=== PATIENT | female | born 1945 | race Two or more races ===

== ENCOUNTER 2024-02-05 17:29 | Emergency (ER) | payer OTHER ==
[2024-02-05 17:46] VITALS: BP 126/54; PULSE 61; RESP 16; BMI 18.3
[2024-02-05 18:08] VITALS: TEMP 98.2
[2024-02-05] MEDS ORDERED: ACETAMINOPHEN 325 MG TABLET (FP) ONE (18:29)
[2024-02-05] MEDS: ACETAMINOPHEN 325 MG TABLET (FP) PO ONE (18:33)
== END 2024-02-05 19:26 | disposition home or self-care (01) ==
LOC: JER 17:29
DX: S80.212A Abrasion, left knee, initial encounter (principal); W10.1XXA Fall (on)(from) sidewalk curb, initial encounter
CPT/HCPCS: 72170-TC-FY; 73560-TC-LT-FY; 99284-25

== ENCOUNTER 2024-06-04 14:32 | Inpatient (IN) | payer OTHER ==
[2024-06-04 16:16] LABS: VENOUS BASE EXCESS -0.2 mmol/L (-2-2); VENOUS O2 SATURATION 23.2 % (70-80); VENOUS PCO2 46.1 mmHg (38-52); VENOUS PH 7.362 (7.310-7.410)
[2024-06-04 16:19] LABS: INR 1.29 (0.83-1.09); PROTHROMBIN TIME (PATIENT) 14.5 SEC (9.7-13.0)
[2024-06-04 16:21] LABS: ACTIVATED PTT 32.4 SECONDS (25.2-36.5)
[2024-06-04 16:27] LABS: HEMATOCRIT 39.1 % (32.4-45.2); HEMOGLOBIN 12.9 GM/dL (10.7-15.3); MCH 29.1 pg (25.7-33.7); MCHC 33.1 g/dl (32.0-36.0); MEAN CELL VOLUME 88.1 fl (80-96); MEAN PLT VOLUME 9.4 fl (7.5-11.1); PLATELET COUNT 104 10^3/uL (134-434); RBC 4.43 M/mm3 (3.60-5.2); RDW 13.6 % (11.6-15.6)
[2024-06-04 16:37] LABS: POTASSIUM 3.9 mmol/L (3.5-5.1)
[2024-06-04 16:39] LABS: ALBUMIN 3.8 g/dl (3.4-5.0); CALCIUM 9.7 mg/dL (8.5-10.1)
[2024-06-04 16:40] LABS: BLOOD UREA NITROGEN 14.6 mg/dL (7-18); MAGNESIUM 1.9 mg/dL (1.8-2.4)
[2024-06-04 16:43] LABS: CREATININE 1.4 mg/dL (0.55-1.3)
[2024-06-04 16:44] LABS: BILIRUBIN,TOTAL 2.3 mg/dL (0.2-1); TOT PROT 8.2 g/dl (6.4-8.2)
[2024-06-04 16:48] LABS: N-TERMINAL BNP 1408.9 pg/ml (5-450)
[2024-06-04 16:51] LABS: LACTIC ACID 3.4 mmol/L (0.4-2.0)
[2024-06-04] MEDS ORDERED: ACETAMINOPHEN INJECTION 100 ML ONE ×2 (16:51→19:21)
[2024-06-04] MEDS: ACETAMINOPHEN 1000 MG/100 ML BAG IVPB ONE ×2 (16:56→19:20)
[2024-06-04] MEDS: SODIUM CHLORIDE 0.9% 500 ML INFUS.BAG IV ONE ×2 (16:57→19:20)
[2024-06-04 17:26] LABS: ANISOCYTOSIS 0; MACROCYTOSIS 0
[2024-06-04] MEDS ORDERED: PIPERACILLIN/TAZOB 4.5 GM 4.5 GM/100 ML BAG IVPB ONE (17:37)
[2024-06-04 17:45] LABS: EPI CELLS 9 /uL (0-25.1); HYALINE CASTS 0 /uL (0-3.1); URINE APPEARANCE CLOUDY; URINE BACTERIA >9,000 /uL (0-1359); URINE BILIRUBIN NEGATIVE (NEGATIVE); URINE COLOR YELLOW; URINE GLUCOSE (UA) 3+ (NEGATIVE); URINE KETONE NEGATIVE (NEGATIVE); URINE LEUK ESTERASE TRACE (NEGATIVE); URINE NITRITE NEGATIVE (NEGATIVE); URINE PROTEIN 1+ (NEGATIVE); URINE RBC 13 /uL (0-23.9); URINE UROBILINOGEN 0.2 mg/dL (0.2-1.0); URINE WBC 130 /uL (0-25.8)
[2024-06-04] MEDS: PIPERACILLIN/TAZOB 4.5 GM 4.5 GM in DEXTROSE 5%-WATER 100 ML IVPB ONE (17:46)
[2024-06-04] MEDS: VANCOMYCIN 1,000 MG in DEXTROSE 5%-WATER - 250 ML IVPB ONE (18:10)
[2024-06-04] MEDS: PIPERACILLIN/TAZOB 3.375 GM 3.375 GM in DEXTROSE 5%-WATER - 50 ML IVPB ONE (19:50)
[2024-06-04] MEDS: AZITHROMYCIN IVPB 500 MG in DEXTROSE 5%-WATER - 250 ML IVPB ONE (19:51)
[2024-06-05 01:07] VITALS: BMI 21.4
[2024-06-05] MEDS: DOCUSATE SODIUM 100 MG CAPSULE (FP) PO SCH (06:08)
[2024-06-05] MEDS: INSULIN ASPART SLIDING SCALE (NOVOLOG) 1 VIAL SQ SCH (07:30)
[2024-06-05 09:05] LABS: BASO % 0.1 % (0-2.0); EOS % 0.2 % (0-4.5); HEMATOCRIT 32.8 % (32.4-45.2); HEMOGLOBIN 10.5 GM/dL (10.7-15.3); LYMPH % 10.9 % (8-40); MCH 28.8 pg (25.7-33.7); MCHC 32.1 g/dl (32.0-36.0); MEAN CELL VOLUME 89.6 fl (80-96); MEAN PLT VOLUME 9.8 fl (7.5-11.1); MONO % 5.8 % (3.8-10.2); PLATELET COUNT 91 10^3/uL (134-434); RBC 3.66 M/mm3 (3.60-5.2); RDW 14.2 % (11.6-15.6); WHITE BLOOD COUNT 10.1 K/mm3 (4.0-10.0)
[2024-06-05 09:24] LABS: POTASSIUM 3.8 mmol/L (3.5-5.1)
[2024-06-05 09:29] LABS: CALCIUM 8.7 mg/dL (8.5-10.1)
[2024-06-05 09:30] LABS: BLOOD UREA NITROGEN 19.2 mg/dL (7-18)
[2024-06-05 09:32] LABS: ALBUMIN 2.9 g/dl (3.4-5.0)
[2024-06-05 09:33] LABS: CREATININE 1.2 mg/dL (0.55-1.3); PHOSPHOROUS 3.5 mg/dL (2.5-4.9)
[2024-06-05 09:34] LABS: BILIRUBIN,TOTAL 1.1 mg/dL (0.2-1); TOT PROT 6.4 g/dl (6.4-8.2)
[2024-06-05] MEDS: PIPERACILLIN/TAZOB 2.25 GM 2.25 GM/50 ML BAG IVPB SCH ×2 (10:36→11:25)
[2024-06-05] MEDS: SODIUM CHLORIDE 1,000 ML IV SCH (11:56)
[2024-06-05] MEDS ORDERED: VANCOMYCIN/WATER FOR INJ (PEG) 750 MG/150 ML BAG IVPB SCH (18:00)
[2024-06-05] MEDS ORDERED: VANCOMYCIN 750 MG in DEXTROSE 5%-WATER - 150 ML IVPB SCH (18:00)
[2024-06-06 07:56] LABS: BASO % 0.4 % (0-2.0); EOS % 0.9 % (0-4.5); HEMATOCRIT 31.6 % (32.4-45.2); HEMOGLOBIN 10.2 GM/dL (10.7-15.3); LYMPH % 14.4 % (8-40); MCH 28.7 pg (25.7-33.7); MCHC 32.2 g/dl (32.0-36.0); MEAN CELL VOLUME 89.3 fl (80-96); MEAN PLT VOLUME 10.3 fl (7.5-11.1); MONO % 7.9 % (3.8-10.2); NEUT % 76.4 % (42.8-82.8); PLATELET COUNT 88 10^3/uL (134-434); RBC 3.54 M/mm3 (3.60-5.2); RDW 14.1 % (11.6-15.6)
[2024-06-06 08:19] LABS: POTASSIUM 3.6 mmol/L (3.5-5.1)
[2024-06-06 08:24] LABS: ALBUMIN 2.8 g/dl (3.4-5.0); BLOOD UREA NITROGEN 14.5 mg/dL (7-18); CALCIUM 8.2 mg/dL (8.5-10.1)
[2024-06-06 08:26] LABS: IRON SERUM 15 ug/dL (50-175)
[2024-06-06 08:27] LABS: TOTAL IRON BINDING CAPACITY 201 ug/dL (250-450)
[2024-06-06 08:29] LABS: TOT PROT 6.3 g/dl (6.4-8.2)
[2024-06-06 09:00] LABS: INR 1.24 (0.83-1.09); PROTHROMBIN TIME (PATIENT) 13.9 SEC (9.7-13.0)
[2024-06-07 07:02] VITALS: PULSE 60
[2024-06-07 08:10] LABS: BASO % 0.3 % (0-2.0); EOS % 1.9 % (0-4.5); HEMATOCRIT 33.6 % (32.4-45.2); HEMOGLOBIN 11.1 GM/dL (10.7-15.3); LYMPH % 16.1 % (8-40); MCH 28.9 pg (25.7-33.7); MCHC 33.1 g/dl (32.0-36.0); MEAN CELL VOLUME 87.3 fl (80-96); MEAN PLT VOLUME 9.9 fl (7.5-11.1); MONO % 8.2 % (3.8-10.2); NEUT % 73.5 % (42.8-82.8); PLATELET COUNT 98 10^3/uL (134-434); RBC 3.85 M/mm3 (3.60-5.2); RDW 14.2 % (11.6-15.6)
[2024-06-07 08:16] LABS: POTASSIUM 3.3 mmol/L (3.5-5.1)
[2024-06-07 08:18] LABS: ALBUMIN 2.9 g/dl (3.4-5.0); BLOOD UREA NITROGEN 9.1 mg/dL (7-18); CALCIUM 8.7 mg/dL (8.5-10.1)
[2024-06-07 08:22] LABS: CREATININE 0.8 mg/dL (0.55-1.3)
[2024-06-07 08:23] LABS: BILIRUBIN,TOTAL 1.1 mg/dL (0.2-1); TOT PROT 6.6 g/dl (6.4-8.2)
[2024-06-07 14:11] LABS: GLIADIN ANTIBODY IGA 3 units (0-19); GLIADIN ANTIBODY IGG 2 units (0-19); TRANSGLUTAMINASE IGG < 2 U/mL (0-5)
[2024-06-07 14:40] VITALS: BP 132/60; RESP 20; TEMP 98.5
[2024-06-07] MEDS: ENOXAPARIN NA (PORCINE) 40 MG/0.4 ML DISP.SYRIN SQ SCH (15:00)
[2024-06-07] MEDS ORDERED: ATORVASTATIN CA 10 MG TABLET (FP) PO SCH (22:00)
== END 2024-06-07 17:02 | disposition home or self-care (01) | DRG 690 ==
LOC: JER 14:32 → JERBED 22:05 → J7W 06-05 00:02 → OBSVTOIN 06-05 07:55
PROVIDERS: ADMIT Internal Medicine; ATTEND Internal Medicine
DX: N39.0 Urinary tract infection, site not specified (principal); N17.9 Acute kidney failure, unspecified; E46 Unspecified protein-calorie malnutrition; R78.81 Bacteremia; I10 Essential (primary) hypertension; E11.9 Type 2 diabetes mellitus without complications; K83.8 Other specified diseases of biliary tract; Z68.21 Body mass index [BMI] 21.0-21.9, adult; B96.20 Unspecified Escherichia coli [E. coli] as the cause of diseases classified elsewhere
CPT/HCPCS: 0241U-QW; 36415; 71045-TC-FY; 74174-TC; 76705-TC; 80053; 81003; 82010; 82784; 82803; 82962; 83516; 83540; 83550; 83605; 83690; 83735; 83880; 84100; 84443; 84484; 85025; 85610; 85730; 86038; 86140; 86704; 86708; 86709; 86803; 86850; 86900; 86901; 87040; 87086; 87186; 87340; 87517; 93005; 93010; 97116-GP; 97161-GP; 99291; G0378; J0131